=== PATIENT | female | born 1995 | race Two or more races ===

== ENCOUNTER 2024-08-23 08:34 | Emergency (ER) | payer OTHER ==
[~2024-08-23] VITALS: Ht 162.6 cm; Wt 88.5 kg
[2024-08-23 08:42] VITALS: BP 127/84; O2SAT 100
[2024-08-23] MEDS ORDERED: [UNRECOGNIZED DRUG - OTHER] PO (08:46)
[2024-08-23] MEDS ORDERED: ACETAMINOPHEN 500 MG GEL..CAP PO ONE ×2 (09:00→09:02)
[2024-08-23] MEDS ORDERED: ONDANSETRON 4 MG TAB.RAPDIS PO ONE ×2 (09:00→09:02)
== END 2024-08-23 10:42 | disposition home or self-care (01) ==
LOC: ER 08:37
DX: E16.0 Drug-induced hypoglycemia without coma (principal)